=== PATIENT | male | born 1995 | race Caucasian/White ===

== ENCOUNTER 2023-07-21 18:45 | Emergency (ER) | payer OTHER ==
[~2023-07-21] VITALS: Ht 185.4 cm; Wt 86.2 kg
[2023-07-21 19:11] VITALS: TEMP 98.6
[2023-07-21 20:20] VITALS: BP 128/80; O2SAT 99
== END 2023-07-21 20:21 ==
LOC: ER 18:55
DX: Z02.89 Encounter for other administrative examinations (principal); V89.2XXA Person injured in unspecified motor-vehicle accident, traffic, initial encounter; Y93.89 Activity, other specified; Y92.89 Other specified places as the place of occurrence of the external cause; Y99.8 Other external cause status